=== PATIENT | male | born 1980 | race African-American/Black ===

== ENCOUNTER 2019-11-21 12:10 | Emergency (ER) | payer OTHER ==
[~2019-11-21] VITALS: Ht 175.3 cm; Wt 95.5 kg
[2019-11-21] MEDS ORDERED: normal saline 1000ML IV soln IVB ONE (12:15)
[2019-11-21] MEDS ORDERED: ketorolac trometh. 30mg/ml inj. IV ONE (12:15)
[2019-11-21 12:51] LABS: BASOPHILS % (AUTO) 0.5 % (0-1); EOSINOPHILS # (AUTO) 0.1 X10'3 (0-0.9); EOSINOPHILS % (AUTO) 0.8 % (0-6); HEMATOCRIT 43.9 % (42.0-52.0); HEMOGLOBIN 15.1 g/dl (14.0-17.9); LYMPHOCYTES # (AUTO) 1.7 X10'3 (1.1-4.8); LYMPHOCYTES % (AUTO) 19.1 % (21-51); MEAN CORPUSCULAR HEMOGLOBIN 30.4 PG (27.0-31.0); MEAN CORPUSCULAR HGB CONC 34.3 g/dL (33.0-36.5); MEAN CORPUSCULAR VOLUME 88.7 FL (78-98); MEAN PLATELET VOLUME 7.6 FL (7.4-10.4); MONOCYTES # (AUTO) 1.1 X10'3 (0-0.9); MONOCYTES % (AUTO) 12.4 % (2-12); NEUTROPHILS % (AUTO) 67.2 % (42-75); PLATELET COUNT 209 X10'3 (140-440); RED BLOOD COUNT 4.95 X10'6 (4.70-6.10); RED CELL DISTRIBUTION WIDTH 12.9 % (11.5-14.5); WHITE BLOOD COUNT 8.9 X10'3 (4.5-11.0)
[2019-11-21 13:04] LABS: ALANINE AMINOTRANSFERASE 76 U/L (12-78); ALBUMIN 3.8 G/DL (3.4-5.0); ALBUMIN/GLOBULIN RATIO 0.8 (1.1-1.5); ALKALINE PHOSPHATASE 84 IU/L (46-116); ANION GAP 10 (8-16); ASPARTATE AMINO TRANSFERASE 25 U/L (10-37); BILIRUBIN,TOTAL 0.7 MG/DL (0.1-1.0); BLOOD UREA NITROGEN 13 MG/DL (7-18); BUN/CREATININE RATIO 10.5 (5.4-32.0); CALCIUM 8.7 MG/DL (8.5-10.1); CHLORIDE 102 MMOL/L (99-107); CREATININE 1.24 MG/DL (0.60-1.10); GLUCOSE 103 MG/DL (70-104); SODIUM 139 MMOL/L (135-145); TOTAL CARBON DIOXIDE 26.9 MMOL/L (24-32); TOTAL PROTEIN 8.7 G/DL (6.4-8.2); eGFR 80 ML/MIN
[2019-11-21] MEDS ORDERED: HYDR-4383 PO (13:14)
[2019-11-21 14:02] VITALS: BP 137/76
== END 2019-11-21 14:00 | disposition home or self-care (01) ==
LOC: ER 12:10
DX: B34.9 Viral infection, unspecified (principal); R05 Cough; R09.81 Nasal congestion; Z88.2 Allergy status to sulfonamides; Z79.899 Other long term (current) drug therapy
CPT/HCPCS: 36415; 71045; 80053; 85025; 96374; 99284; J1885; J7030

== ENCOUNTER 2019-11-24 14:44 | Emergency (ER) | payer OTHER ==
[~2019-11-24] VITALS: Ht 175.3 cm; Wt 94.5 kg
[~2019-11-24 14:44] MED LIST: HYDR-4383 PO
[2019-11-24 14:47] VITALS: BP 145/88
== END 2019-11-24 15:42 | disposition home or self-care (01) ==
LOC: ER 14:45
DX: R05 Cough (principal); Z20.828 Contact with and (suspected) exposure to other viral communicable diseases; R50.9 Fever, unspecified; Z88.2 Allergy status to sulfonamides
CPT/HCPCS: 87635; 99283

== ENCOUNTER 2020-02-26 16:55 | Emergency (ER) | payer OTHER ==
[~2020-02-26] VITALS: Ht 175.3 cm; Wt 95.5 kg
[2020-02-26 16:57] VITALS: BP 154/93
[2020-02-26] MEDS ORDERED: CYCL-1 PO (17:09)
[2020-02-26] MEDS ORDERED: ketorolac tromethamine 15mg/ml inj. IM ONE (17:10)
== END 2020-02-26 17:21 | disposition home or self-care (01) ==
LOC: ER 16:56 → EEVIPCON 16:56 → ER 17:21
DX: S76.812A Strain of other specified muscles, fascia and tendons at thigh level, left thigh, initial encounter (principal); M79.652 Pain in left thigh; Z88.2 Allergy status to sulfonamides; Z79.899 Other long term (current) drug therapy; X58.XXXA Exposure to other specified factors, initial encounter; Y93.89 Activity, other specified; Y92.89 Other specified places as the place of occurrence of the external cause; Y99.8 Other external cause status
CPT/HCPCS: 96372; 99283; J1885